=== PATIENT | female | born 1945 | race Caucasian/White ===

== ENCOUNTER 2018-01-27 11:23 | Outpatient (CLI) | payer MEDICARE ==
--- NOTE | 2018-01-27 12:46 | RAD ---
THREE VIEWS LEFT ANKLE: Indication: Left ankle pain. Comparison: None. FINDINGS: There is soft tissue swelling surrounding the left ankle. No acute fracture or subluxation is evident . Talar dome is normal. Visualized hindfoot is intact. IMPRESSION: No acute left ankle abnormality. POS: [facility]
== END 2018-01-27 11:24 | disposition home or self-care (01) ==
LOC: RAD-FRANK 11:23
PROVIDERS: ATTEND Nurse Practitioner Family
DX: S99.912A Unspecified injury of left ankle, initial encounter (principal)

== ENCOUNTER 2018-03-25 15:44 | Outpatient (CLI) | payer MEDICARE ==
--- NOTE | 2018-03-25 16:29 | RAD ---
3 VIEWS LEFT WRIST: Date: 03/25/18 COMPARISON: None. HISTORY: Pain. FINDINGS: There is mild radiocarpal joint space narrowing. No displaced fracture or dislocation is seen. IMPRESSION: No acute osseous abnormality seen. POS: [facility]
== END 2018-03-25 15:45 | disposition home or self-care (01) ==
LOC: RAD-FRANK 15:44
PROVIDERS: ATTEND Nurse Practitioner Family
DX: G56.02 Carpal tunnel syndrome, left upper limb (principal)

== ENCOUNTER 2018-06-20 07:44 | Outpatient (CLI) | payer MEDICARE ==
[2018-06-20] MEDS ORDERED: ISOVUE-370 76%-LOCM 1 ML ONE (13:30)
== END 2018-06-20 07:45 | disposition home or self-care (01) ==
LOC: BICCT 07:44
PROVIDERS: ATTEND Nurse Practitioner Family
DX: F17.200 Nicotine dependence, unspecified, uncomplicated (principal); D53.9 Nutritional anemia, unspecified; R30.0 Dysuria; R82.90 Unspecified abnormal findings in urine; D58.2 Other hemoglobinopathies; E11.40 Type 2 diabetes mellitus with diabetic neuropathy, unspecified; I10 Essential (primary) hypertension
CPT/HCPCS: 71260

== ENCOUNTER 2018-09-03 09:48 | Outpatient (CLI) | payer MEDICARE ==
--- NOTE | 2018-09-03 10:43 | RAD ---
LUMBAR SPINE THREE VIEW SERIES: INDICATIONS: Leg weakness. FINDINGS: There is moderate degenerative change, most notable at the mid to lower lumbar spine. No acute compr ession fracture. There is incidental note of atherosclerosis. Mild levocurvature of the lumbar spin e is present, epicentered at the L2-L3 level. IMPRESSION: No acute osseous abnormality of the lumbar spine, with multilevel degenerative change. POS: [facility]
== END 2018-09-03 09:49 | disposition home or self-care (01) ==
LOC: RAD-FRANK 09:48
PROVIDERS: ATTEND Nurse Practitioner Family
DX: R29.898 Other symptoms and signs involving the musculoskeletal system (principal); M47.816 Spondylosis without myelopathy or radiculopathy, lumbar region
CPT/HCPCS: 72100

== ENCOUNTER 2018-12-03 09:47 | Outpatient (CLI) | payer MEDICARE ==
--- NOTE | 2018-12-03 11:43 | BD ---
BONE DENSITOMETRY USING DEXA: HISTORY: Postmenopausal screening for osteoporosis. FINDINGS LUMBAR SPINE BMD (g/cm2) T-SCORE Z-SCORE L1: 0.940 -0.5 1.7 L2: 0.949 -0.7 1.7 L3: 1.097 0.1 2.7 L4: 1.412 3.2 5.8 TOTAL: 1.107 0.5 3.0 BMD (g/cm2) T-SCORE Z-SCORE NECK: 0.773 -0.7 1.4 TOTAL: 0.924 -0.1 1.7 IMPRESSION: 1. Normal bone mineral density. 2. No evidence for osteopenia/osteoporosis. POS: [facility]
== END 2018-12-03 09:48 | disposition home or self-care (01) ==
LOC: BICMAMMO 09:47
PROVIDERS: ATTEND Nurse Practitioner Family
DX: Z13.820 Encounter for screening for osteoporosis (principal)
CPT/HCPCS: 77080

== ENCOUNTER 2018-12-30 07:59 | Outpatient (CLI) | payer MEDICARE ==
--- NOTE | 2018-12-30 09:56 | ULT ---
ULTRASOUND NECK SOFT TISSUES: 12/30/2018 HISTORY: R59.0, supraclavicular lymphadenopathy. TECHNIQUE: focused ultrasound, limited to the palpable lump in the right supraclavicular region. FINDINGS: There is a well-circumscribed, [id number], nonshadowing, hypoechoic, solid mass, measuring 1.1 x 0.6 x 1.2 cm. It has blood flow demonstrated by Doppler. IMPRESSION: 1. The palpable lump corresponds to a superficial, small soft tissue solid mass, which is probably a mildly enlarged lymph node. 2. Recommend CT of the neck (preferably with intravenous contrast, unless contraindicated) to furthe r evaluate this lesion and to evaluate for other sites of lymphadenopathy. POS: [facility]
--- NOTE | 2018-12-30 10:57 | CT ---
CT CHEST WITH IV CONTRAST: 12/30/2018 PROVIDED CLINICAL HISTORY: Right medial supraclavicular palpable abnormality. FINDINGS: Vascular calcification, including coronary calcium, is demonstrated. The heart, pericardium, and gre at vessels demonstrate an otherwise unremarkable CT appearance. There is no evidence for mediastinal, hilar, or axillary lymph node enlargement. There is an approxi mately 1.3 cm enhancing soft tissue mass within the subcutaneous adipose layer, anterior to the media l right clavicle and sternocleidomastoid muscle. The CT appearance of this mass is nonspecific. No additional extrathoracic soft tissue nodules are seen. The lungs are free of significant opacity. Minimal emphysematous changes are seen. There is no pleural fluid or pneumothorax apparent. The osseous structures demonstrate no concerning lytic or blastic lesions. There is ectasia of the i nfrarenal abdominal aorta, measuring at least 2.5 cm. There is conspicuous atherosclerotic mural talita que seen involving the visualized portions of the abdominal aorta. The visualized portions of the up per abdomen appear otherwise unremarkable. IMPRESSION: 1. Nonspecific, enhancing 1.3 cm soft tissue mass within the subcutaneous adipose layer overlying th e medial right clavicle and sternocleidomastoid muscle. Tissue sampling should be considered. 2. Vascular calcification, including coronary calcium. 3. Ectasia of the infrarenal abdominal aorta, partially visualized. POS: [facility]
== END 2018-12-30 08:00 | disposition home or self-care (01) ==
LOC: SCSCT 07:59
PROVIDERS: ATTEND Nurse Practitioner Family
DX: R59.0 Localized enlarged lymph nodes (principal); R91.8 Other nonspecific abnormal finding of lung field; D58.2 Other hemoglobinopathies; R73.01 Impaired fasting glucose; I10 Essential (primary) hypertension; I70.90 Unspecified atherosclerosis; I25.10 Atherosclerotic heart disease of native coronary artery without angina pectoris; I77.811 Abdominal aortic ectasia; Z72.0 Tobacco use
CPT/HCPCS: 71260; 76536

== ENCOUNTER 2019-02-17 13:19 | Outpatient (CLI) | payer MEDICARE ==
--- NOTE | 2019-02-17 14:06 | ULT ---
Soft tissue ultrasound: Directed ultrasound of the anterior chest wall of this midsternum is performe d. INDICATIONS: Question palpable mass in the midsternal region. FINDINGS: No sonographic abnormality identified. No subcutaneous mass or cystic lesion. IMPRESSION: Unremarkable soft tissue ultrasound anterior mid chest wall at the area of palpable tavon rn.
== END 2019-02-17 13:20 | disposition home or self-care (01) ==
LOC: BICULT 13:19
PROVIDERS: ATTEND Nurse Practitioner Family
DX: R22.2 Localized swelling, mass and lump, trunk (principal)

== ENCOUNTER 2019-05-25 10:03 | Outpatient (CLI) | payer MEDICARE ==
--- NOTE | 2019-05-25 11:38 | ULT ---
US Gallbladder RUQ: 05/25/2019 12:00 AM CLINICAL HISTORY: Right upper quadrant abdominal pain. STUDY: Limited right upper quadrant ultrasound of abdomen. COMPARISON: None. FINDINGS: Liver: Size: Normal. Echogenicity: Increased slightly Contour: Smooth. Mass: None. Bile ducts: No intrahepatic or extrahepatic biliary dilatation. Common bile duct measures 5 mm. Gallbladder: Normal. Pancreas: Not well visualized. Right kidney: No pelvicalyceal dilatation. Right kidney measuring 9.4 cm in length. IMPRESSION: Increased echogenicity of the liver may be secondary to fatty infiltration.
== END 2019-05-25 10:04 | disposition home or self-care (01) ==
LOC: ULT 10:03
PROVIDERS: ATTEND Nurse Practitioner Family
DX: R10.11 Right upper quadrant pain (principal); K76.89 Other specified diseases of liver
CPT/HCPCS: 36415; 76705; 80053; 81001; 82150; 83690; 85025; 87086

== ENCOUNTER 2019-06-02 12:11 | Emergency (ER) | payer MEDICARE ==
[2019-06-02] MEDS ORDERED: Lidocaine 1% (PF) 30 ML VIAL ONE (12:47)
[2019-06-02] MEDS ORDERED: Lidocaine Viscous Sol 2% 15 ml UD Cup ONE (12:49)
[2019-06-02] MEDS ORDERED: Mag-Al 1200 mg/1200 mg/30 ML UDCUP ONE ×4 (12:49→12:51)
[2019-06-02 13:16] LABS: #Basophils 0.1 thou/uL (0.0-0.2); #Eosinphils 0.5 thou/uL (0.0-0.7); #Lymphocytes 2.5 thou/uL (1.20-3.40); #Monocytes 0.7 thou/uL (0.11-0.59); #Neutrophils 7.3 thou/uL (1.40-6.50); %Basophils 0.6 % (0.0-1.0); %Eosinophils 4.3 % (0.0-10.0); %Lymphocytes 22.7 % (21.0-51.0); %Monocytes 6.1 % (0.0-10.0); %Neutrophils 66.4 % (42.0-75.0); Hemoglobin 17.3 g/dL (12.0-16.0); Mean Corpuscular HGB CONC 35.4 g/dL (32.0-36.0); Mean Corpuscular Hemoglobin 32.6 pg (27.0-31.0); Mean Corpuscular Volume 92.2 fL (78.0-98.0); Mean Platelet Volume 8.4 fL (7.4-10.4); Platelet Count 159 thou/uL (130-400); RBC Distribution Width 12.8 % (11.5-14.5); Red Blood Cell (RBC) Count 5.31 mill/uL (4.20-5.40); White Blood Cell (WBC) Count 10.9 thou/uL (4.8-10.8)
[2019-06-02 13:48] LABS: ALT (SGPT) 11 U/L (8-55); AST (SGOT) 15 U/L (5-34); Albumin 4.2 g/dL (3.4-4.8); Alkaline Phosphatase 61 U/L (40-150); Anion Gap 11 mmol/L (10-20); BUN (Urea Nitrogen) 17 mg/dL (9.8-20.1); Bilirubin, Total 0.4 mg/dL (0.2-1.2); Calc. Creatinine Clearance 0 mL/min (70-130); Calcium 9.8 mg/dL (7.8-10.44); Carbon Dioxide 25 mmol/L (23-31); Chloride 105 mmol/L (98-107); Estimated GFR-MDRD 63; Globulin 2.6 g/dL (2.4-3.5); Glucose 109 mg/dL (83-110); Lipase 42 U/L (8-78); Potassium 3.6 mmol/L (3.5-5.1); Protein, Total 6.8 g/dL (6.0-8.3); Sodium 137 mmol/L (136-145)
[2019-06-02 14:24] LABS: Bacteria/HPF None Seen HPF (None Seen); Bilirubin Negative (Negative); Blood, Urine Negative (Negative); Clarity Clear (Clear); Glucose, Urine (Dipstick) Normal (Negative); Leukocyte 75 Leu/uL (Negative); Nitrite Negative (Negative); Protein, Urine (Dipstick) Negative (Neg-Trace); RBC/HPF None Seen HPF (0-3); Squamous Epithelial 0-3 HPF (0-3); Urobilinogen Normal mg/dL (Less than 2); WBC/HPF 0-3 HPF (0-3)
[2019-06-02] MEDS ORDERED: Ketorolac Tromethamine 30 MG/ML VIAL ONE (14:48)
[2019-06-02] MEDS ORDERED: ISOVUE-370 76%-LOCM 1 ML ONE (14:49)
--- NOTE | 2019-06-02 16:33 | CT ---
CT ABDOMEN AND PELVIS WITH IV CONTRAST: Date: 06/02/19 PROVIDED CLINICAL HISTORY: Right upper quadrant pain. FINDINGS: The visualized lung bases are free of significant opacity. The liver, spleen, pancreas, kidneys, and adrenal glands demonstrate no significant abnormality. There is no bowel dilatation, inflammatory fat stranding, free fluid, or free air apparent. There is conspicuous multifocal atherosclerotic vascular calcification, as well as areas of mural talita que involving the abdominal aorta. There is somewhat irregular appearing soft plaque involving the po sterior aspect of the proximal abdominal aorta at the inferior aspects of the diaphragmatic hiatus th at may reflect ulcerated plaque. There is no definite evidence for a significant mesenteric stenosis. There is mild narrowing at the origin of the superior mesenteric artery. The abdominal aorta is ecta tic distally measuring up to 2.7 cm. The osseous structures demonstrate no concerning lytic or blastic lesions. IMPRESSION: 1. No definite evidence for an acute process. 2. Atherosclerosis as described above. POS: [facility]
== END 2019-06-02 15:50 | disposition home or self-care (01) ==
LOC: ERS 12:11
DX: R10.11 Right upper quadrant pain (principal); E11.9 Type 2 diabetes mellitus without complications; I10 Essential (primary) hypertension; E78.5 Hyperlipidemia, unspecified; F17.210 Nicotine dependence, cigarettes, uncomplicated; Z79.51 Long term (current) use of inhaled steroids; Z79.899 Other long term (current) drug therapy
CPT/HCPCS: 74177; 80053; 81003; 81015; 83690; 85025; 96372; J1885; J2001; Q9966

== ENCOUNTER 2019-06-18 08:46 | Outpatient (CLI) | payer MEDICARE ==
--- NOTE | 2019-06-18 11:00 | ULT ---
ULTRASOUND ABDOMINAL AORTA: Date: 06/18/19 HISTORY: Ectasia. COMPARISON: None. TECHNIQUE: Sagittal and transverse imaging of the abdominal aorta is performed. Doppler imaging also performed. FINDINGS: There is scattered calcified plaque throughout the aorta. Proximal aorta measures 2.2 cm in the sagittal plane and 2.2 cm in the short axis. Mid aorta measures 2.2 cm in the sagittal plane and 2.1 cm in the short axis. Distal aorta measures 2.5 cm in the sagittal plane and 2.5 cm in the short axis. Neither iliac artery appears to be dilated. IMPRESSION: No evidence of aneurysm with regards to the visualized aorta. POS: [facility]
--- NOTE | 2019-06-18 11:34 | RAD ---
RADIOGRAPH CHEST 2 VIEWS: DATE: 06/18/19 HISTORY: 74-year-old female with chest pain. FINDINGS: There is no air space density, pulmonary edema, pleural effusion, pneumothorax, or cardiomegaly. IMPRESSION: No acute cardiopulmonary findings. jn [] POS: [facility]
== END 2019-06-18 08:47 | disposition home or self-care (01) ==
LOC: BICULT 08:46
PROVIDERS: ATTEND Nurse Practitioner Family
DX: I77.819 Aortic ectasia, unspecified site (principal)
CPT/HCPCS: 71046; 76775

== ENCOUNTER 2019-06-18 08:54 | Outpatient (CLI) | payer MEDICARE ==
--- NOTE | 2019-06-18 10:18 | MMO ---
Bilateral MAMMO Bilat Screen DDI+DREW. CLINICAL HISTORY: Patient is 74 years old and is seen for screening. The patient has the following family history of breast cancer: maternal aunt. The patient has no personal history of cancer. VIEWS: The views performed were: bilateral craniocaudal with tomosynthesis and bilateral mediolateral oblique with tomosynthesis. FILMS COMPARED: The present examination has been compared to prior imaging studies performed at [facility] on 04/13/2013, 04/14/2014, 04/15/2015 and 07/12/2016. MAMMOGRAM FINDINGS: There are scattered fibroglandular densities. There are no suspicious masses, suspicious calcifications, or new areas of architectural distortion. IMPRESSION: THERE IS NO MAMMOGRAPHIC EVIDENCE OF MALIGNANCY. A ROUTINE FOLLOW-UP MAMMOGRAM IN 1 YEAR IS RECOMMENDED. THE RESULTS OF THIS EXAM WERE SENT TO THE PATIENT. ACR BI-RADS Category 1 - Negative MAMMOGRAPHY NOTE: 1. A negative mammogram report should not delay a biopsy if a dominant of clinically suspicious mass is present. 2. Approximately 10% to 15% of breast cancers are not detected by mammography. 3. Adenosis and dense breasts may obscure an underlying neoplasm. Reported by: MINGO GREEN MD Electonically Signed: [id number]
== END 2019-06-18 08:55 | disposition home or self-care (01) ==
LOC: BICMAMMO 08:54
PROVIDERS: ATTEND Nurse Practitioner Family
DX: Z12.31 Encounter for screening mammogram for malignant neoplasm of breast (principal); Z80.3 Family history of malignant neoplasm of breast
CPT/HCPCS: 77063; 77067

== ENCOUNTER 2019-08-03 09:13 | Outpatient (CLI) | payer MEDICARE ==
[2019-08-03 10:13] LABS: #Eosinphils 0.3 thou/uL (0.0-0.7); #Lymphocytes 2.7 thou/uL (1.20-3.40); #Monocytes 0.6 thou/uL (0.11-0.59); #Neutrophils 7.4 thou/uL (1.40-6.50); %Basophils 0.3 % (0.0-1.0); %Eosinophils 2.9 % (0.0-10.0); %Lymphocytes 24.3 % (21.0-51.0); %Monocytes 5.7 % (0.0-10.0); %Neutrophils 66.9 % (42.0-75.0); Hemoglobin 16.8 g/dL (12.0-16.0); Mean Corpuscular HGB CONC 35.6 g/dL (32.0-36.0); Mean Corpuscular Hemoglobin 32.7 pg (27.0-31.0); Mean Platelet Volume 9.2 fL (7.4-10.4); Platelet Count 162 thou/uL (130-400); RBC Distribution Width 12.4 % (11.5-14.5); Red Blood Cell (RBC) Count 5.14 mill/uL (4.20-5.40); White Blood Cell (WBC) Count 11.1 thou/uL (4.8-10.8)
[2019-08-03 10:16] LABS: INR-International Normal Ratio 0.9; PTT 25.9 SEC (22.9-36.1); Prothrombin Time 12.2 SEC (12.0-14.7)
[2019-08-03 10:38] LABS: ALT (SGPT) 12 U/L (8-55); AST (SGOT) 17 U/L (5-34); Alkaline Phosphatase 61 U/L (40-110); Anion Gap 11 mmol/L (10-20); BUN (Urea Nitrogen) 16 mg/dL (9.8-20.1); Bilirubin, Total 0.3 mg/dL (0.2-1.2); Calc. Creatinine Clearance 0 mL/min (70-130); Calcium 9.4 mg/dL (7.8-10.44); Carbon Dioxide 27 mmol/L (23-31); Cardiac Risk 5.2 (Less than 4.5); Chloride 104 mmol/L (98-107); Cholesterol 191 mg/dl (< 200 Desired); Estimated GFR-MDRD 68; Globulin 2.6 g/dL (2.4-3.5); Glucose 125 mg/dL (83-110); HDL Cholesterol 37 mg/dL (>60 Neg Risk); LDL Cholesterol, Calculated 105 mg/dL; Potassium 3.4 mmol/L (3.5-5.1); Protein, Total 6.6 g/dL (6.0-8.3); Sodium 139 mmol/L (136-145); Triglycerides 246 mg/dL (Less than 150)
== END 2019-08-03 09:14 | disposition home or self-care (01) ==
LOC: LABBT 09:13
PROVIDERS: ATTEND Internal Medicine Cardiovascular Disease
DX: Z01.818 Encounter for other preprocedural examination (principal); I25.10 Atherosclerotic heart disease of native coronary artery without angina pectoris
CPT/HCPCS: 80053; 80061; 85025; 85610; 85730; 93005; 93010

== ENCOUNTER 2019-08-13 09:35 | Day surgery (SDC) | payer MEDICARE ==
[2019-08-03 09:26] VITALS: BMI 22.4
[2019-08-13] MEDS ORDERED: Lidocaine 1% (PF) 30 ML VIAL ONE (10:30)
[2019-08-13] MEDS ORDERED: Nitroglycerin 100MG/250ML BOT 250 ML ONE (10:30)
[2019-08-13] MEDS ORDERED: Heparin 10,000 UNITS/1 ML VIAL ONE (10:30)
[2019-08-13] MEDS ORDERED: Verapamil 5 MG/2 ML VIAL ONE (10:30)
[2019-08-13] MEDS ORDERED: Midazolam HCl 2 mg/2 ml Vial ONE (11:09)
[2019-08-13] MEDS ORDERED: Fentanyl 100 MCG/2 ML VIAL ONE (11:09)
== END 2019-08-13 15:35 | disposition home or self-care (01) ==
LOC: CCL 09:35
PROVIDERS: ATTEND Internal Medicine Cardiovascular Disease
PROC: 4A023N7 Measurement of Cardiac Sampling and Pressure, Left Heart, Percutaneous Approach (ICD-10-PCS; principal; 2019-08-13)
PROC: B2111ZZ Fluoroscopy of Multiple Coronary Arteries using Low Osmolar Contrast (ICD-10-PCS; 2019-08-13)
DX: I25.118 Atherosclerotic heart disease of native coronary artery with other forms of angina pectoris (principal); I35.1 Nonrheumatic aortic (valve) insufficiency; I10 Essential (primary) hypertension; E11.9 Type 2 diabetes mellitus without complications; E78.00 Pure hypercholesterolemia, unspecified; Z79.899 Other long term (current) drug therapy; Z88.1 Allergy status to other antibiotic agents; Z88.2 Allergy status to sulfonamides; Z88.8 Allergy status to other drugs, medicaments and biological substances
CPT/HCPCS: 85347; 93005; 93454; 93798; 99152; 99153; C1769; C1874; C1887; J1644; J2001; J2250; J3010

== ENCOUNTER 2019-09-09 09:55 | Outpatient (CLI) | payer MEDICARE ==
--- NOTE | 2019-09-09 10:12 | RAD ---
XR Wrist 3 Lt View STANDARD: 09/09/2019 12:00 AM CLINICAL INDICATION: Left wrist pain COMPARISON: March 25, 2018 left wrist radiograph. FINDINGS: Bones: No acute osseous abnormality. Joints: There is stable mild osteoarthrosis of the first C joint. Small amount of chondrocalcinosis i s present involving hyaline cartilage of the radial carpal joint as well as the TFC. This is stable to the prior exam. No periarticular erosive changes evident.. Soft Tissue: Diffuse soft tissue swelling of the left forearm and left wrist is nonspecific.. IMPRESSION: No acute fracture or subluxation demonstrated. Nonspecific diffuse soft tissue swelling the left fore arm and wrist. Stable mild first CMC osteoarthrosis. Stable chondrocalcinosis..
== END 2019-09-09 09:56 | disposition home or self-care (01) ==
LOC: RAD-FRANK 09:55
PROVIDERS: ATTEND Nurse Practitioner Family
DX: T14.8XXA Other injury of unspecified body region, initial encounter (principal); M79.602 Pain in left arm; D68.318 Other hemorrhagic disorder due to intrinsic circulating anticoagulants, antibodies, or inhibitors; M19.042 Primary osteoarthritis, left hand; M11.232 Other chondrocalcinosis, left wrist

== ENCOUNTER 2020-07-22 10:13 | Outpatient (CLI) | payer MEDICARE ==
--- NOTE | 2020-07-22 11:51 | ULT ---
COMPLETE ABDOMEN ULTRASOUND INDICATION: History of fatty liver TECHNIQUE: Grayscale, color Doppler and spectral Doppler were obtained of the abdomen. COMPARISON: Right upper quadrant ultrasound dated 05/25/[address] the abdomen and pelvis dated May FINDINGS: Liver: Normal. Main portal vein: Patent with appropriate hepatopedal flow Pancreas: Visualized aspects appeared normal. Gallbladder: Normal. No sonographic Dasilva's sign reported. Common bile duct:6 mm. Right kidney: The right kidney measured 7.8 x 4.3 x 4.4 cm. No focal renal lesion or hydronephrosis i s evident. Left kidney: The left kidney measured 10.7 x 4.5 x 4.5 cm. No focal renal lesion or hydronephrosis is demonstrated. Aorta and IVC: The aorta is tortuous with atherosclerotic calcification. No aneurysmal dilatation is evident. Visualized IVC is unremarkable appearing. Spleen: 11.1 cm in length. No focal splenic lesion is evident. Free fluid: None. IMPRESSION: 1. Normal sonographic evaluation of the abdomen
== END 2020-07-22 10:14 | disposition home or self-care (01) ==
LOC: BICULT 10:13
PROVIDERS: ATTEND Nurse Practitioner Family
DX: K76.0 Fatty (change of) liver, not elsewhere classified (principal); K21.0 Gastro-esophageal reflux disease with esophagitis; E87.1 Hypo-osmolality and hyponatremia; I10 Essential (primary) hypertension; D58.2 Other hemoglobinopathies; D68.318 Other hemorrhagic disorder due to intrinsic circulating anticoagulants, antibodies, or inhibitors; E11.40 Type 2 diabetes mellitus with diabetic neuropathy, unspecified; I35.1 Nonrheumatic aortic (valve) insufficiency
CPT/HCPCS: 93975

== ENCOUNTER 2020-11-15 19:00 | Emergency (ER) | payer MEDICARE | END 2020-11-15 20:21 | disposition home or self-care (01) | LOC: ERS 19:00 | DX: M79.604 Pain in right leg (principal); M79.605 Pain in left leg; E11.9 Type 2 diabetes mellitus without complications; E78.5 Hyperlipidemia, unspecified; E78.00 Pure hypercholesterolemia, unspecified; I10 Essential (primary) hypertension; F17.210 Nicotine dependence, cigarettes, uncomplicated | CPT/HCPCS: 99283 ==

== ENCOUNTER 2021-03-21 23:50 | Inpatient (IN) | payer MEDICARE ==
[2021-03-22 01:29] LABS: #Eosinphils 0.2 thou/uL (0.0-0.7); #Lymphocytes 1.2 thou/uL (1.20-3.40); #Monocytes 1.3 thou/uL (0.11-0.59); #Neutrophils 16.5 thou/uL (1.40-6.50); %Basophils 0.1 % (0.0-1.0); %Eosinophils 0.8 % (0.0-10.0); %Lymphocytes 6.4 % (21.0-51.0); %Monocytes 6.8 % (0.0-10.0); %Neutrophils 85.8 % (42.0-75.0); Mean Corpuscular HGB CONC 34.3 g/dL (32.0-36.0); Mean Corpuscular Hemoglobin 31.1 pg (27.0-31.0); Mean Corpuscular Volume 90.8 fL (78.0-98.0); Mean Platelet Volume 8.4 fL (7.4-10.4); Platelet Count 146 thou/uL (130-400); RBC Distribution Width 12.6 % (11.5-14.5); Red Blood Cell (RBC) Count 4.81 mill/uL (4.20-5.40); White Blood Cell (WBC) Count 19.3 thou/uL (4.8-10.8)
[2021-03-22 02:01] LABS: ALT (SGPT) 27 U/L (8-55); AST (SGOT) 22 U/L (5-34); Alkaline Phosphatase 60 U/L (40-110); Anion Gap 15 mmol/L (10-20); BUN (Urea Nitrogen) 21 mg/dL (9.8-20.1); Bilirubin, Total 0.7 mg/dL (0.2-1.2); CK (CPK) 61 U/L (29-168); Calc. Creatinine Clearance 0 mL/min (70-130); Calcium 9.3 mg/dL (7.8-10.44); Carbon Dioxide 25 mmol/L (23-31); Chloride 94 mmol/L (98-107); Globulin 2.5 g/dL (2.4-3.5); Glucose 164 mg/dL (83-110); Potassium 3.6 mmol/L (3.5-5.1); Protein, Total 6.5 g/dL (5.8-8.1); Sodium 130 mmol/L (136-145)
[2021-03-22 02:46] LABS: Bilirubin Negative (Negative); Blood, Urine 2+ (Negative); Clarity Turbid (Clear); Glucose, Urine (Dipstick) Normal (Negative); Ketone, Urine Negative (Negative); Leukocyte 500 Leu/uL (Negative); Nitrite Negative (Negative); Protein, Urine (Dipstick) 100 mg/dL (Neg-Trace); Specific Gravity, Urine 1.015 (1.002-1.036); Squamous Epithelial 0-3 HPF (0-3); Urobilinogen Normal mg/dL (Less than 2); WBC/HPF Greater than 50 HPF (0-3)
[2021-03-22 02:47] LABS: Bacteria/HPF 1+ HPF (None Seen)
[2021-03-22] MEDS ORDERED: cefTRIAXone\\ROCEPHIN 2 GM VIAL ONE (03:19)
[2021-03-22] MEDS ORDERED: Acetaminophen 325 MG TAB ONE (05:12)
[2021-03-22] MEDS ORDERED: HumaLOG 300 UNITS/3 ML VIAL SC PRN (07:44)
[2021-03-22] MEDS ORDERED: Acetaminophen 325 MG TAB PO PRN (07:44)
[2021-03-22] MEDS ORDERED: Zolpidem Tartrate 5 MG TAB PO PRN (07:44)
[2021-03-22] MEDS ORDERED: Ondansetron ODT 4 MG TAB PO PRN (07:44)
[2021-03-22] MEDS ORDERED: Dextrose 50% Abboject 50 ML SYRINGE SLOW IVP PRN (07:44)
[2021-03-22] MEDS ORDERED: Dextrose 5% in Water 1,000 ML IV PRN (07:44)
[2021-03-22] MEDS ORDERED: cefTRIAXone Sodium 1 MG in Syringe 0 ML IVPB SCH (07:45)
[2021-03-22 07:50] VITALS: BMI 20.6
[2021-03-22] MEDS: Sodium Chloride 0.9% 1,000 ML IV SCH ×2 (09:36→18:40)
[2021-03-22] MEDS: Enoxaparin Sodium 40 MG/0.4 ML SYRINGE SC SCH (09:36)
[2021-03-22 15:42] LABS: SARS-CoV-2 PCR by NAA Not Detected (NotDetected)
[2021-03-22] MEDS: Pregabalin 75 MG CAP PO SCH (21:34)
[2021-03-22] MEDS: Rosuvastatin 20 MG TAB PO SCH (21:34)
[2021-03-23] MEDS ORDERED: cefTRIAXone\\ROCEPHIN 1 GM in Sodium Chloride 0.9% 100 ML IVPB SCH (03:00)
[2021-03-23] MEDS ORDERED: cefTRIAXone\\ROCEPHIN 2 GM in Sodium Chloride 0.9% 100 ML IVPB SCH (03:00)
[2021-03-23] MEDS: cefTRIAXone\\ROCEPHIN 1 GM in Sodium Chloride 0.9% 100 ML IVPB SCH (05:54)
[2021-03-23] MEDS: Sodium Chloride 0.9% 1,000 ML IV SCH ×2 (05:54→14:55)
[2021-03-23 06:02] LABS: Anion Gap 10 mmol/L (10-20); BUN (Urea Nitrogen) 17 mg/dL (9.8-20.1); Calc. Creatinine Clearance 55 mL/min (70-130); Calcium 8.3 mg/dL (7.8-10.44); Carbon Dioxide 24 mmol/L (23-31); Chloride 106 mmol/L (98-107); Glucose 116 mg/dL (83-110); Potassium 3.6 mmol/L (3.5-5.1); Sodium 136 mmol/L (136-145)
[2021-03-23 06:10] LABS: #Eosinphils 0.2 thou/uL (0.0-0.7); #Lymphocytes 1.3 thou/uL (1.20-3.40); #Monocytes 0.8 thou/uL (0.11-0.59); #Neutrophils 6.6 thou/uL (1.40-6.50); %Basophils 0.2 % (0.0-1.0); %Eosinophils 2.5 % (0.0-10.0); %Monocytes 8.4 % (0.0-10.0); %Neutrophils 73.9 % (42.0-75.0); Mean Corpuscular HGB CONC 33.5 g/dL (32.0-36.0); Mean Corpuscular Volume 92.4 fL (78.0-98.0); Mean Platelet Volume 8.6 fL (7.4-10.4); Platelet Count 115 thou/uL (130-400); Platelet Morphology Comment Appears Decreased; RBC Distribution Width 12.6 % (11.5-14.5); Red Blood Cell (RBC) Count 4.19 mill/uL (4.20-5.40)
[2021-03-23] MEDS: Enoxaparin Sodium 40 MG/0.4 ML SYRINGE SC SCH ×2 (08:48→08:49)
[2021-03-23] MEDS: Aspirin 81 mg Enteric Coated Tablet PO SCH (08:48)
[2021-03-23 09:51] LABS: Hemoglobin A1c 6.2 % (4.0-6.0)
[2021-03-23] MEDS: Pregabalin 75 MG CAP PO SCH ×2 (12:03→20:17)
[2021-03-23] MEDS: Rosuvastatin 20 MG TAB PO SCH (20:16)
[2021-03-24] MEDS: Sodium Chloride 0.9% 1,000 ML IV SCH ×2 (01:05→08:34)
[2021-03-24] MEDS: cefTRIAXone\\ROCEPHIN 1 GM in Sodium Chloride 0.9% 100 ML IVPB SCH (05:08)
[2021-03-24] MEDS: Aspirin 81 mg Enteric Coated Tablet PO SCH (08:33)
[2021-03-24] MEDS: Enoxaparin Sodium 40 MG/0.4 ML SYRINGE SC SCH (08:33)
[2021-03-24] MEDS: Pregabalin 75 MG CAP PO SCH (12:00)
[2021-03-24 16:09] VITALS: BP 162/66; TEMP 98
== END 2021-03-24 16:00 | disposition home or self-care (01) | DRG 872 ==
LOC: ERS 23:50 → ERHOLD 03-22 03:58 → SURG A 03-22 07:44 → OBSVTOIN 03-22 07:44
PROVIDERS: ADMIT Student in an Organized Health Care Education/Training Program; ATTEND Internal Medicine
DX: A41.51 Sepsis due to Escherichia coli [E. coli] (principal); N39.0 Urinary tract infection, site not specified; N17.9 Acute kidney failure, unspecified; Z20.822 Contact with and (suspected) exposure to COVID-19; E11.9 Type 2 diabetes mellitus without complications; E78.5 Hyperlipidemia, unspecified; E78.00 Pure hypercholesterolemia, unspecified; I10 Essential (primary) hypertension; F17.210 Nicotine dependence, cigarettes, uncomplicated; I25.10 Atherosclerotic heart disease of native coronary artery without angina pectoris; Z88.1 Allergy status to other antibiotic agents; Z88.2 Allergy status to sulfonamides; Z79.899 Other long term (current) drug therapy; Z79.84 Long term (current) use of oral hypoglycemic drugs; Z79.82 Long term (current) use of aspirin; Z90.710 Acquired absence of both cervix and uterus; Z95.5 Presence of coronary angioplasty implant and graft; Z88.8 Allergy status to other drugs, medicaments and biological substances
CPT/HCPCS: 36415; 36416; 70450; 71046; 80048; 80053; 81003; 81015; 82550; 83036; 83605; 84443; 84484; 85025; 87040; 87086; 87186; 93005; 96365; G0378; J0696; J1650; J1815; J3490; U0003; U0005

== ENCOUNTER 2021-07-07 05:48 | Day surgery (SDC) | payer MEDICARE ==
[2021-07-06 10:40] VITALS: BMI 20.6
[2021-07-07] MEDS ORDERED: Lidocaine 1% w/Epinephrine 1:100K 30 ML VIAL ONE (06:47)
[2021-07-07] MEDS ORDERED: Bupivacaine PF 0.5% 30 ML VIAL ONE (06:47)
[2021-07-07] MEDS ORDERED: Fentanyl 100 MCG/2 ML VIAL ONE (07:41)
[2021-07-07] MEDS ORDERED: Albuterol Sulfate HFA (OR ONLY) ONE (07:42)
[2021-07-07] MEDS ORDERED: PHENYLEPHRINE-NS 100 MCG/ML 10 ML SYRINGE ONE (07:57)
[2021-07-07] MEDS ORDERED: PROPOFOL 200 MG/20 ML VIAL ONE (07:57)
[2021-07-07] MEDS ORDERED: Ondansetron PF 4 MG/2 ML Vial ONE (07:57)
[2021-07-07] MEDS ORDERED: ePHEDrine 50 MG/ML VIAL ONE (07:57)
[2021-07-07] MEDS ORDERED: Lidocaine 1% PF 5 ML VIAL ONE (07:57)
== END 2021-07-07 10:35 | disposition home or self-care (01) ==
LOC: SDC 05:48
PROVIDERS: ATTEND Surgery
PROC: 07B60ZX Excision of Left Axillary Lymphatic, Open Approach, Diagnostic (ICD-10-PCS; principal; 2021-07-07)
DX: C83.31 Diffuse large B-cell lymphoma, lymph nodes of head, face, and neck (principal); E78.5 Hyperlipidemia, unspecified; E11.40 Type 2 diabetes mellitus with diabetic neuropathy, unspecified; I10 Essential (primary) hypertension; I25.2 Old myocardial infarction; I35.1 Nonrheumatic aortic (valve) insufficiency; F17.210 Nicotine dependence, cigarettes, uncomplicated; Z79.82 Long term (current) use of aspirin; Z79.84 Long term (current) use of oral hypoglycemic drugs; Z79.899 Other long term (current) drug therapy; Z88.1 Allergy status to other antibiotic agents; Z88.2 Allergy status to sulfonamides; Z95.5 Presence of coronary angioplasty implant and graft
CPT/HCPCS: 88184; 88307; 88341; 88342; 88360; J0690; J2405; J2704; J3010; J3490; J7620; S0020

== ENCOUNTER 2021-07-08 14:25 | Emergency (ER) | payer MEDICARE | END 2021-07-08 15:15 | disposition home or self-care (01) | LOC: ERS 14:25 | DX: S41.111A Laceration without foreign body of right upper arm, initial encounter (principal); Z48.817 Encounter for surgical aftercare following surgery on the skin and subcutaneous tissue; E11.9 Type 2 diabetes mellitus without complications; E78.5 Hyperlipidemia, unspecified; I10 Essential (primary) hypertension; F17.210 Nicotine dependence, cigarettes, uncomplicated; Z79.899 Other long term (current) drug therapy; W19.XXXA Unspecified fall, initial encounter | CPT/HCPCS: 99283 ==

== ENCOUNTER 2021-07-21 13:02 | Outpatient (CLI) | payer MEDICARE | END 2021-07-21 13:03 | disposition home or self-care (01) | LOC: ULT 13:02 | PROVIDERS: ATTEND Internal Medicine Hematology & Oncology | DX: Z51.11 Encounter for antineoplastic chemotherapy (principal); C83.31 Diffuse large B-cell lymphoma, lymph nodes of head, face, and neck; Z79.899 Other long term (current) drug therapy; I08.1 Rheumatic disorders of both mitral and tricuspid valves | CPT/HCPCS: 93306 ==

== ENCOUNTER 2021-07-25 10:31 | Outpatient (CLI) | payer MEDICARE | END 2021-07-25 10:32 | disposition home or self-care (01) | LOC: PET 10:31 | PROVIDERS: ATTEND Internal Medicine Hematology & Oncology | DX: C83.31 Diffuse large B-cell lymphoma, lymph nodes of head, face, and neck (principal) | CPT/HCPCS: 78815; A9552 ==

== ENCOUNTER 2021-08-03 08:17 | Outpatient (CLI) | payer MEDICARE ==
[2021-08-03 10:06] LABS: #Basophils 0.1 10x3/uL (0.0-0.2); #Eosinphils 0.7 10x3/uL (0.0-0.5); #Monocytes 0.6 10x3/uL (0.0-1.1); %Eosinophils 8.2 % (0.0-6.0); %Lymphocytes 22.5 % (18.0-47.0); %Monocytes 6.8 % (0.0-10.0); %Neutrophils 61.1 % (40.0-75.0); Hemoglobin 14.6 g/dL (12.0-15.5); Mean Corpuscular HGB CONC 34.4 g/dL (32.0-36.0); Mean Corpuscular Hemoglobin 30.5 pg (27.0-33.0); Mean Corpuscular Volume 88.7 fl (81.6-98.3); Mean Platelet Volume 10.9 fl (7.4-10.4); Platelet Count 190 10x3/uL (150-450); Red Blood Cell (RBC) Count 4.78 10x6/uL (3.90-5.03); White Blood Cell (WBC) Count 8.2 10x3/uL (3.5-10.5)
[2021-08-03 10:19] LABS: ALT (SGPT) 19 U/L (8-55); AST (SGOT) 21 U/L (5-34); Albumin 4.1 g/dL (3.4-4.8); Alkaline Phosphatase 60 U/L (40-110); Anion Gap 13 mmol/L (10-20); BUN (Urea Nitrogen) 18 mg/dL (9.8-20.1); Bilirubin, Total 0.4 mg/dL (0.2-1.2); Calc. Creatinine Clearance 0 mL/min (70-130); Calcium 9.8 mg/dL (7.8-10.44); Carbon Dioxide 27 mmol/L (23-31); Chloride 100 mmol/L (98-107); Globulin 2.3 g/dL (2.4-3.5); Glucose 152 mg/dL (83-110); Potassium 3.8 mmol/L (3.5-5.1); Protein, Total 6.4 g/dL (5.8-8.1); Sodium 136 mmol/L (136-145)
[2021-08-03 20:16] LABS: SARS-CoV-2 PCR by NAA Not Detected (NotDetected)
== END 2021-08-03 08:18 | disposition home or self-care (01) ==
LOC: LABBT 08:17
PROVIDERS: ATTEND Surgery
DX: Z01.818 Encounter for other preprocedural examination (principal); C85.90 Non-Hodgkin lymphoma, unspecified, unspecified site; Z20.822 Contact with and (suspected) exposure to COVID-19
CPT/HCPCS: 80053; 85025; 93005; U0003; U0005; 93010

== ENCOUNTER 2021-08-07 09:35 | Day surgery (SDC) | payer MEDICARE ==
[2021-08-04 10:50] VITALS: BMI 20.6
[2021-08-07] MEDS ORDERED: PROPOFOL 20 ML ONE (11:05)
[2021-08-07] MEDS ORDERED: Bupivacaine 0.25% HCL 30 ML VIAL ONE (11:15)
[2021-08-07] MEDS ORDERED: Lidocaine 1% w/Epinephrine 1:100K 20 ML VIAL ONE (11:15)
[2021-08-07] MEDS ORDERED: Metoclopramide HCl 10 MG/2 ML VIAL ONE (11:32)
[2021-08-07] MEDS ORDERED: PROPOFOL 200 MG/20 ML VIAL ONE (11:32)
[2021-08-07] MEDS ORDERED: Ondansetron PF 4 MG/2 ML Vial ONE (11:32)
[2021-08-07] MEDS ORDERED: Lidocaine 1% PF 5 ML VIAL ONE (11:32)
== END 2021-08-07 13:41 | disposition home or self-care (01) ==
LOC: SDC 09:35
PROVIDERS: ATTEND Surgery
PROC: 0JH60WZ Insertion of Totally Implantable Vascular Access Device into Chest Subcutaneous Tissue and Fascia, Open Approach (ICD-10-PCS; principal; 2021-08-07)
PROC: 02HV33Z Insertion of Infusion Device into Superior Vena Cava, Percutaneous Approach (ICD-10-PCS; 2021-08-07)
DX: C85.90 Non-Hodgkin lymphoma, unspecified, unspecified site (principal); E78.5 Hyperlipidemia, unspecified; E11.40 Type 2 diabetes mellitus with diabetic neuropathy, unspecified; I10 Essential (primary) hypertension; F17.210 Nicotine dependence, cigarettes, uncomplicated; Z79.82 Long term (current) use of aspirin; Z79.84 Long term (current) use of oral hypoglycemic drugs; Z79.899 Other long term (current) drug therapy; Z88.1 Allergy status to other antibiotic agents; Z88.2 Allergy status to sulfonamides; Z88.8 Allergy status to other drugs, medicaments and biological substances; Z95.5 Presence of coronary angioplasty implant and graft
CPT/HCPCS: 71045; C1788; J1642; J2405; J2704; J2765; S0020

== ENCOUNTER 2021-08-21 07:27 | Outpatient (CLI) | payer MEDICARE ==
[2021-08-21 11:14] LABS: Hemoglobin 14.6 g/dL (12.0-15.5); Mean Corpuscular HGB CONC 34.4 g/dL (32.0-36.0); Mean Corpuscular Hemoglobin 30.6 pg (27.0-33.0); Mean Corpuscular Volume 89.1 fl (81.6-98.3); Mean Platelet Volume 10.9 fl (7.4-10.4); Platelet Count 193 10x3/uL (150-450); RBC Distribution Width 13.1 % (11.5-14.5); Red Blood Cell (RBC) Count 4.77 10x6/uL (3.90-5.03)
[2021-08-21 11:26] LABS: Anion Gap 15 mmol/L (10-20); BUN (Urea Nitrogen) 13 mg/dL (9.8-20.1); Calc. Creatinine Clearance 0 mL/min (70-130); Calcium 9.1 mg/dL (7.8-10.44); Carbon Dioxide 26 mmol/L (23-31); Chloride 96 mmol/L (98-107); Glucose 141 mg/dL (83-110); Potassium 3.7 mmol/L (3.5-5.1); Sodium 133 mmol/L (136-145)
[2021-08-21 18:54] LABS: SARS-CoV-2 PCR by NAA Not Detected (NotDetected)
== END 2021-08-21 07:28 | disposition home or self-care (01) ==
LOC: LABBT 07:27
PROVIDERS: ATTEND Student in an Organized Health Care Education/Training Program
DX: Z01.812 Encounter for preprocedural laboratory examination (principal); C85.90 Non-Hodgkin lymphoma, unspecified, unspecified site; R22.9 Localized swelling, mass and lump, unspecified; F17.200 Nicotine dependence, unspecified, uncomplicated; Z90.89 Acquired absence of other organs; Z20.822 Contact with and (suspected) exposure to COVID-19
CPT/HCPCS: 80048; 85027; U0003; U0005

== ENCOUNTER 2021-08-22 12:27 | Day surgery (SDC) | payer MEDICARE ==
[2021-08-21 11:27] VITALS: BMI 19.8
[2021-08-22] MEDS ORDERED: Sodium Chloride 0.9% 10 ML ONE ×2 (13:18→18:07)
[2021-08-22] MEDS ORDERED: EPINEPHrine 1 MG/ML AMP ONE (14:52)
[2021-08-22] MEDS ORDERED: Fentanyl 100 MCG/2 ML VIAL ONE (15:10)
[2021-08-22] MEDS ORDERED: Acetaminophen 500 MG TAB ONE (15:10)
[2021-08-22] MEDS ORDERED: Succinylcholine 200 MG/10 ml SYRINGE FS ONE (15:17)
[2021-08-22] MEDS ORDERED: Lidocaine 1% PF 5 ML VIAL ONE (15:17)
[2021-08-22] MEDS ORDERED: Ondansetron PF 4 MG/2 ML Vial ONE (15:17)
[2021-08-22] MEDS ORDERED: Rocuronium Bromide 10 MG/ML (10ML VIAL) ONE (15:17)
[2021-08-22] MEDS ORDERED: PROPOFOL 200 MG/20 ML VIAL ONE (15:17)
[2021-08-22] MEDS ORDERED: Dexamethasone 20 MG/5 ML VIAL ONE (15:17)
== END 2021-08-22 18:33 | disposition home or self-care (01) ==
LOC: SDC 12:27
PROVIDERS: ATTEND Student in an Organized Health Care Education/Training Program
PROC: 0CBM8ZZ Excision of Pharynx, Via Natural or Artificial Opening Endoscopic (ICD-10-PCS; principal; 2021-08-22)
PROC: 0BJ08ZZ Inspection of Tracheobronchial Tree, Via Natural or Artificial Opening Endoscopic (ICD-10-PCS; 2021-08-22)
DX: K14.8 Other diseases of tongue (principal); C83.39 Diffuse large B-cell lymphoma, extranodal and solid organ sites; F17.210 Nicotine dependence, cigarettes, uncomplicated; E11.40 Type 2 diabetes mellitus with diabetic neuropathy, unspecified; I25.2 Old myocardial infarction; I10 Essential (primary) hypertension; E78.5 Hyperlipidemia, unspecified; R63.6 Underweight; Z68.1 Body mass index [BMI] 19.9 or less, adult; Z79.82 Long term (current) use of aspirin; Z79.84 Long term (current) use of oral hypoglycemic drugs; Z79.899 Other long term (current) drug therapy; Z88.1 Allergy status to other antibiotic agents; Z88.2 Allergy status to sulfonamides; Z88.8 Allergy status to other drugs, medicaments and biological substances; Z95.5 Presence of coronary angioplasty implant and graft
CPT/HCPCS: 88184; 88305; 88341; 88342; J0171; J1100; J1642; J2405; J2704; J3010

== ENCOUNTER 2021-09-04 08:44 | Day surgery (SDC) | payer MEDICARE ==
[~2021-09-04 08:44] MED LIST: ADMIXTURE FEE CHEMO IVP SCH; Acetaminophen 500 MG TAB PO PRN; CYCLOPHOSPHAMIDE IVPB SCH; DOXORUBICIN IVPB SCH; Dexamethasone 20 MG in Sodium Chloride 0.9% 50 ML IVPB SCH; Dexamethasone Sod Phosphate 20 MG in Sodium Chloride 0.9% 50 ML IVPB SCH; PALONOSETRON HCL 0.05 MG/ML 5 ML VIAL IVP SCH; PEGFILGRASTIM-JMDB 6 MG/0.6 ML SYRINGE SQ SCH; Palonosetron HCl 0.25 MG in Sodium Chloride 0.9% 50 ML IVPB SCH; RITUXIMAB PVVR IVPB SCH; SODIUM CHLORIDE 0.9% IVPB SCH; VINCRISTINE SULFATE IVP SCH; diphenhydrAMINE 50 MG in Sodium Chloride 0.9% 50 ML IVPB SCH; predniSONE 50 MG TAB PO SCH; vinCRIStine Sulfate 2 MG in Sodium Chloride 0.9% 50 ML IVP SCH
[2021-09-04] MEDS ORDERED: Sodium Chloride 0.9% 20 ML ONE (09:19)
[2021-09-04] MEDS ORDERED: Pegfilgrastim Onpro 6 MG/0.6 ML SQ SCH (09:30)
[2021-09-04 09:40] VITALS: TEMP 98.9
[2021-09-04 14:44] VITALS: BP 110/58
== END 2021-09-04 16:26 | disposition home or self-care (01) ==
LOC: ONC/OP 08:44
PROVIDERS: ATTEND Internal Medicine Hematology & Oncology
DX: Z51.11 Encounter for antineoplastic chemotherapy (principal); C83.31 Diffuse large B-cell lymphoma, lymph nodes of head, face, and neck; D75.1 Secondary polycythemia; Z88.1 Allergy status to other antibiotic agents; Z88.2 Allergy status to sulfonamides; Z88.8 Allergy status to other drugs, medicaments and biological substances
CPT/HCPCS: 36415; 80053; 82248; 83615; 84100; 84550; 96367; 96372; 96375; 96377; 96411; 96413; 96415; 96417; J1100; J1200; J1453; J1642; J2469; J2505; J3490; J7030; J7050; J9000; J9070; J9370; Q5108; Q5119

== ENCOUNTER 2021-09-11 13:59 | Inpatient (IN) | payer MEDICARE ==
[2021-09-11 15:02] LABS: Hemoglobin 13.1 g/dL (12.0-16.0); Mean Corpuscular HGB CONC 34.5 g/dL (32.0-36.0); Mean Corpuscular Hemoglobin 31.8 pg (27.0-31.0); Mean Corpuscular Volume 92.2 fL (78.0-98.0); Mean Platelet Volume 9.5 fL (7.4-10.4); Platelet Count 25 thou/uL (130-400); RBC Distribution Width 12.5 % (11.5-14.5); Red Blood Cell (RBC) Count 4.12 mill/uL (4.20-5.40); White Blood Cell (WBC) Count 0.4 thou/uL (4.8-10.8)
[2021-09-11 15:18] LABS: ALT (SGPT) 11 U/L (8-55); AST (SGOT) 9 U/L (5-34); Albumin 3.6 g/dL (3.4-4.8); Alkaline Phosphatase 57 U/L (40-110); Anion Gap 12 mmol/L (10-20); BUN (Urea Nitrogen) 26 mg/dL (9.8-20.1); Bilirubin, Total 1.5 mg/dL (0.2-1.2); Calc. Creatinine Clearance 0 mL/min (70-130); Carbon Dioxide 29 mmol/L (23-31); Chloride 97 mmol/L (98-107); Globulin 2.6 g/dL (2.4-3.5); Glucose 156 mg/dL (83-110); Platelet Morphology Comment Appears Decreased; Potassium 3.9 mmol/L (3.5-5.1); Protein, Total 6.2 g/dL (5.8-8.1); RBC Morphology Normal; Sodium 134 mmol/L (136-145)
[2021-09-11] MEDS ORDERED: Ondansetron PF 4 MG/2 ML Vial ONE (16:41)
[2021-09-11] MEDS ORDERED: Acetaminophen 325 MG TAB ONE (17:33)
[2021-09-11 22:50] LABS: Bilirubin Negative (Negative); Blood, Urine Negative (Negative); Clarity Turbid (Clear); Glucose, Urine (Dipstick) Normal (Negative); Ketone, Urine Negative (Negative); Leukocyte Negative Leu/uL (Negative); Nitrite Negative (Negative); Protein, Urine (Dipstick) 20 mg/dL (Neg-Trace); Specific Gravity, Urine 1.013 (1.002-1.036); pH, Urine 6.5 (5.0-9.0)
[2021-09-11] MEDS ORDERED: Sodium Chloride 0.9% 1,000 ML IV SCH (23:45)
[2021-09-11] MEDS ORDERED: Ondansetron ODT 4 MG TAB SL PRN (23:45)
[2021-09-11] MEDS ORDERED: Acetaminophen 325 MG TAB PO PRN (23:45)
[2021-09-11] MEDS ORDERED: Ondansetron PF 4 MG/2 ML Vial IVP PRN (23:45)
[2021-09-12 00:24] VITALS: BMI 20.7
[2021-09-12] MEDS ORDERED: Ondansetron PF 4 MG/2 ML Vial IVP PRN (03:16)
[2021-09-12] MEDS ORDERED: HumaLOG 300 UNITS/3 ML VIAL SC PRN ×2 (03:19)
[2021-09-12] MEDS ORDERED: Dextrose 50% Abboject 50 ML SYRINGE SLOW IVP PRN (03:19)
[2021-09-12] MEDS ORDERED: Dextrose 5% in Water 1,000 ML IV PRN (03:19)
[2021-09-12] MEDS ORDERED: hydrALAZINE 20 MG/ML VIAL SLOW IVP PRN (03:22)
[2021-09-12] MEDS ORDERED: Cefepime 1 GM in Sodium Chloride 0.9% 100 ML IVPB SCH (03:30)
[2021-09-12 04:29] LABS: Anion Gap 13 mmol/L (10-20); BUN (Urea Nitrogen) 21 mg/dL (9.8-20.1); Calc. Creatinine Clearance 55 mL/min (70-130); Calcium 8.5 mg/dL (7.8-10.44); Carbon Dioxide 25 mmol/L (23-31); Chloride 100 mmol/L (98-107); Glucose 127 mg/dL (83-110); Potassium 3.5 mmol/L (3.5-5.1); Sodium 134 mmol/L (136-145)
[2021-09-12 04:30] LABS: Hemoglobin 12.2 g/dL (12.0-16.0); Mean Corpuscular HGB CONC 34.1 g/dL (32.0-36.0); Mean Corpuscular Hemoglobin 31.4 pg (27.0-31.0); Mean Corpuscular Volume 92.3 fL (78.0-98.0); Mean Platelet Volume 11.1 fL (7.4-10.4); Platelet Count 20 thou/uL (130-400); RBC Distribution Width 12.2 % (11.5-14.5); Red Blood Cell (RBC) Count 3.89 mill/uL (4.20-5.40); White Blood Cell (WBC) Count 0.3 thou/uL (4.8-10.8)
[2021-09-12] MEDS: Acetaminophen 325 MG TAB PO PRN ×2 (05:13→10:53)
[2021-09-12] MEDS ORDERED: CEFEPIME IVPB PRN (08:57)
[2021-09-12] MEDS: Pregabalin 75 MG CAP PO SCH ×2 (10:54→20:36)
[2021-09-12] MEDS: Vancomycin 1 GM in Premix Bag 1 BAG IVPB SCH (10:54)
[2021-09-12] MEDS: Nystatin 500,000 UNITS/5 ML UDCUP SSW SCH ×3 (13:21→20:35)
[2021-09-12] MEDS: Meropenem 2 GM in Sodium Chloride 0.9% 100 ML IVPB SCH ×2 (13:21→22:40)
[2021-09-12] MEDS ORDERED: Meropenem 2 GM in Admixture Fee 1 EACH IVPB SCH (14:00)
[2021-09-12 14:19] LABS: SARS-CoV-2 PCR by NAA Not Detected (NotDetected)
[2021-09-12] MEDS: traMADol HCl 50 MG TAB PO PRN (15:34)
[2021-09-12] MEDS ORDERED: Fluconazole In NaCl,Iso-Osm 200 MG in Premix Bag 1 BAG IVPB SCH (15:45)
[2021-09-12] MEDS ORDERED: Cefepime 2 GM in Sodium Chloride 0.9% 100 ML IVPB SCH (17:00)
[2021-09-12] MEDS: Rosuvastatin 5 MG TAB PO SCH (20:35)
[2021-09-12] MEDS: Losartan 25 MG TAB PO SCH (20:38)
[2021-09-12] MEDS ORDERED: Rosuvastatin 20 MG TAB PO SCH (21:00)
[2021-09-12] MEDS ORDERED: Pregabalin 75 MG CAP PO SCH (21:00)
[2021-09-12] MEDS ORDERED: Vancomycin 1.25 GM in Premix Bag 1 BAG IVPB SCH (21:00)
[2021-09-12] MEDS: Aspirin 81 mg Enteric Coated Tablet PO SCH (23:33)
[2021-09-13] MEDS: Meropenem 2 GM in Sodium Chloride 0.9% 100 ML IVPB SCH ×3 (05:16→22:14)
[2021-09-13 07:21] LABS: Hemoglobin 11.3 g/dL (12.0-16.0); Mean Corpuscular HGB CONC 34.2 g/dL (32.0-36.0); Mean Corpuscular Hemoglobin 31.4 pg (27.0-31.0); Platelet Count 24 thou/uL (130-400); RBC Distribution Width 12.2 % (11.5-14.5); Red Blood Cell (RBC) Count 3.59 mill/uL (4.20-5.40); White Blood Cell (WBC) Count 0.7 thou/uL (4.8-10.8)
[2021-09-13 07:35] LABS: Anion Gap 11 mmol/L (10-20); BUN (Urea Nitrogen) 17 mg/dL (9.8-20.1); Calc. Creatinine Clearance 61 mL/min (70-130); Calcium 8.3 mg/dL (7.8-10.44); Carbon Dioxide 24 mmol/L (23-31); Chloride 101 mmol/L (98-107); Glucose 63 mg/dL (83-110); Potassium 3.3 mmol/L (3.5-5.1); Sodium 133 mmol/L (136-145)
[2021-09-13 08:19] LABS: Band 20 % (5-11); Lymphocytes 36 % (21-51); MDiff Complete? YES; Monocytes 20 % (0-10); Myelocyte 2 % (0-0); Neutrophil 18 % (42-75); Nucleated RBC 2 % (0); Platelet Morphology Comment Appears Decreased; Polychromasia SLIGHT = 2-3 cells (100X) (0-2/hpf); Reactive Lymphocytes 4 % (0-10)
[2021-09-13] MEDS: Nystatin 500,000 UNITS/5 ML UDCUP SSW SCH ×4 (08:40→20:16)
[2021-09-13] MEDS: Cholecalciferol 1,000 UNITS (25 MCG) TAB PO SCH (08:40)
[2021-09-13] MEDS: metFORMIN 500 MG TAB PO SCH (08:40)
[2021-09-13] MEDS: Fish Oil 1,000 MG CAP PO SCH (08:40)
[2021-09-13] MEDS: Multivit, Therapeutic 1 TAB PO SCH (08:40)
[2021-09-13] MEDS: Fluconazole In NaCl,Iso-Osm 200 MG in Premix Bag 1 BAG IVPB SCH (08:40)
[2021-09-13] MEDS ORDERED: Non-Formulary Item 1 EACH (Multivitamin [Multi-Vitamin Daily] 1 TABLET Tablet) PO SCH (09:00)
[2021-09-13] MEDS ORDERED: Non-Formulary Item 1 EACH (Cholecalciferol (Vitamin D3) [Vitamin D3] 1,000 UNIT Capsule) PO SCH (09:00)
[2021-09-13] MEDS ORDERED: Non-Formulary Item 1 EACH (Omeprazole [Omeprazole] 20 MG Tablet.Dr) PO SCH (09:00)
[2021-09-13] MEDS ORDERED: Non-Formulary Item 1 EACH (Mirabegron [Myrbetriq] 50 MG Tab.Er.24h) PO SCH (09:00)
[2021-09-13] MEDS: Vancomycin 1 GM in Premix Bag 1 BAG IVPB SCH (11:29)
[2021-09-13] MEDS: Polyethylene Glycol 3350 17 GM Packet PO SCH (11:29)
[2021-09-13] MEDS: Pregabalin 75 MG CAP PO SCH ×2 (11:30→20:16)
[2021-09-13] MEDS: traMADol HCl 50 MG TAB PO PRN ×2 (13:08→23:09)
[2021-09-13] MEDS: Rosuvastatin 5 MG TAB PO SCH (20:16)
[2021-09-13] MEDS: Losartan 25 MG TAB PO SCH (20:16)
[2021-09-13] MEDS: Docusate 100 MG CAP PO SCH (20:17)
[2021-09-13] MEDS: Aspirin 81 mg Enteric Coated Tablet PO SCH (20:35)
[2021-09-14] MEDS: Meropenem 2 GM in Sodium Chloride 0.9% 100 ML IVPB SCH (06:10)
[2021-09-14 06:31] LABS: Hemoglobin 11.6 g/dL (12.0-16.0); Mean Corpuscular HGB CONC 35.6 g/dL (32.0-36.0); Mean Corpuscular Hemoglobin 32.2 pg (27.0-31.0); Mean Corpuscular Volume 90.5 fL (78.0-98.0); Mean Platelet Volume 9.9 fL (7.4-10.4); Platelet Count 43 thou/uL (130-400); RBC Distribution Width 12.1 % (11.5-14.5); Red Blood Cell (RBC) Count 3.61 mill/uL (4.20-5.40); White Blood Cell (WBC) Count 2.4 thou/uL (4.8-10.8)
[2021-09-14 06:48] LABS: Anion Gap 11 mmol/L (10-20); BUN (Urea Nitrogen) 13 mg/dL (9.8-20.1); Calc. Creatinine Clearance 59 mL/min (70-130); Calcium 8.9 mg/dL (7.8-10.44); Carbon Dioxide 27 mmol/L (23-31); Chloride 99 mmol/L (98-107); Glucose 83 mg/dL (83-110); Potassium 3.2 mmol/L (3.5-5.1); Sodium 134 mmol/L (136-145)
[2021-09-14 07:35] LABS: Band 37 % (5-11); Eosinophils 1 % (0-10); Lymphocytes 15 % (21-51); MDiff Complete? YES; Metamyelocyte 1 % (0-0); Monocytes 6 % (0-10); Myelocyte 1 % (0-0); Neutrophil 30 % (42-75); Platelet Morphology Comment Appears Decreased; Polychromasia SLIGHT = 2-3 cells (100X) (0-2/hpf); Reactive Lymphocytes 9 % (0-10)
[2021-09-14 07:36] VITALS: BP 139/66; TEMP 98.3
[2021-09-14] MEDS: Fish Oil 1,000 MG CAP PO SCH (08:45)
[2021-09-14] MEDS: Docusate 100 MG CAP PO SCH (08:45)
[2021-09-14] MEDS: Cholecalciferol 1,000 UNITS (25 MCG) TAB PO SCH (08:45)
[2021-09-14] MEDS: Nystatin 500,000 UNITS/5 ML UDCUP SSW SCH (08:45)
[2021-09-14] MEDS: Multivit, Therapeutic 1 TAB PO SCH (08:45)
[2021-09-14] MEDS: metFORMIN 500 MG TAB PO SCH (08:45)
[2021-09-14] MEDS: Polyethylene Glycol 3350 17 GM Packet PO SCH (08:46)
[2021-09-14] MEDS ORDERED: FLU VACC QS2021-22(65YR UP)/PF 240 MCG/0.7 ML SYRINGE IM ONE (09:00)
[2021-09-14] MEDS: Fluconazole In NaCl,Iso-Osm 200 MG in Premix Bag 1 BAG IVPB SCH (09:25)
[2021-09-14 09:57] LABS: Vancomycin, Trough 8.7 ug/mL
[2021-09-14] MEDS ORDERED: Vancomycin HCl 750 MG in Sodium Chloride 0.9% 250 ML 250 ML IVPB SCH (11:00)
[2021-09-14] MEDS: Pregabalin 75 MG CAP PO SCH (11:03)
[2021-09-14] MEDS: traMADol HCl 50 MG TAB PO PRN (11:03)
== END 2021-09-14 11:32 | disposition home or self-care (01) | DRG 813 ==
LOC: ERS 13:59 → T4-B 22:08
PROVIDERS: ADMIT Internal Medicine; ATTEND Internal Medicine
DX: D69.6 Thrombocytopenia, unspecified (principal); B37.0 Candidal stomatitis; N39.0 Urinary tract infection, site not specified; C82.91 Follicular lymphoma, unspecified, lymph nodes of head, face, and neck; D70.9 Neutropenia, unspecified; E86.0 Dehydration; E11.9 Type 2 diabetes mellitus without complications; E78.5 Hyperlipidemia, unspecified; E78.00 Pure hypercholesterolemia, unspecified; I10 Essential (primary) hypertension; F17.210 Nicotine dependence, cigarettes, uncomplicated; I25.10 Atherosclerotic heart disease of native coronary artery without angina pectoris; B96.20 Unspecified Escherichia coli [E. coli] as the cause of diseases classified elsewhere; R50.81 Fever presenting with conditions classified elsewhere; Z90.710 Acquired absence of both cervix and uterus; Z88.1 Allergy status to other antibiotic agents; Z88.2 Allergy status to sulfonamides; Z88.8 Allergy status to other drugs, medicaments and biological substances; Z79.899 Other long term (current) drug therapy; Z79.82 Long term (current) use of aspirin; Z79.84 Long term (current) use of oral hypoglycemic drugs; Z92.21 Personal history of antineoplastic chemotherapy; Z95.5 Presence of coronary angioplasty implant and graft
CPT/HCPCS: 36415; 36416; 70450; 71045; 80048; 80053; 80202; 81003; 82550; 83605; 84484; 85025; 87040; 87077; 87086; 87186; 87804; 93005; 96374; J0692; J1450; J2185; J2405; J3370; J3490; J7050; U0003; U0005

== ENCOUNTER 2021-09-26 08:41 | Day surgery (SDC) | payer MEDICARE ==
[~2021-09-26 08:41] MED LIST changes: -ADMIXTURE FEE CHEMO IVP SCH; -CYCLOPHOSPHAMIDE IVPB SCH; -DOXORUBICIN IVPB SCH; -Dexamethasone 20 MG in Sodium Chloride 0.9% 50 ML IVPB SCH; -Dexamethasone Sod Phosphate 20 MG in Sodium Chloride 0.9% 50 ML IVPB SCH; -PEGFILGRASTIM-JMDB 6 MG/0.6 ML SYRINGE SQ SCH; -Palonosetron HCl 0.25 MG in Sodium Chloride 0.9% 50 ML IVPB SCH; -RITUXIMAB PVVR IVPB SCH; -SODIUM CHLORIDE 0.9% IVPB SCH; -VINCRISTINE SULFATE IVP SCH; +diphenhydrAMINE 50 MG in Sodium Chloride 0.9% 50 ML IVPB PRN; -diphenhydrAMINE 50 MG in Sodium Chloride 0.9% 50 ML IVPB SCH; -predniSONE 50 MG TAB PO SCH; -vinCRIStine Sulfate 2 MG in Sodium Chloride 0.9% 50 ML IVP SCH
[2021-09-26] MEDS ORDERED: SODIUM CHLORIDE 0.9% IVPB SCH ×3 (08:45)
[2021-09-26] MEDS ORDERED: RITUXIMAB PVVR IVPB SCH (08:45)
[2021-09-26] MEDS ORDERED: vinCRIStine Sulfate 2 MG in Sodium Chloride 0.9% 50 ML IVPB SCH (08:45)
[2021-09-26] MEDS ORDERED: PEGFILGRASTIM-JMDB 6 MG/0.6 ML SYRINGE SQ SCH (08:45)
[2021-09-26] MEDS ORDERED: DOXORUBICIN IVPB SCH (08:45)
[2021-09-26] MEDS ORDERED: predniSONE 50 MG TAB PO SCH (08:45)
[2021-09-26] MEDS ORDERED: CYCLOPHOSPHAMIDE IVPB SCH (08:45)
[2021-09-26] MEDS ORDERED: Dexamethasone Sod Phosphate 20 MG in Sodium Chloride 0.9% 50 ML IVPB SCH (08:45)
[2021-09-26 09:52] VITALS: TEMP 97.6
[2021-09-26] MEDS ORDERED: Sodium Chloride 0.9% 100 ML BAG ONE (10:15)
[2021-09-26] MEDS ORDERED: Acetaminophen 500 MG TAB ONE (10:15)
[2021-09-26] MEDS ORDERED: PALONOSETRON HCL 0.05 MG/ML 5 ML VIAL ONE (10:15)
[2021-09-26 14:24] VITALS: BP 146/68
[2021-09-26] MEDS ORDERED: Pegfilgrastim Onpro 6 MG/0.6 ML SQ SCH (17:00)
== END 2021-09-26 17:01 | disposition home or self-care (01) ==
LOC: ONC/OP 08:41
PROVIDERS: ATTEND Internal Medicine Hematology & Oncology
DX: Z51.11 Encounter for antineoplastic chemotherapy (principal); C83.31 Diffuse large B-cell lymphoma, lymph nodes of head, face, and neck; D75.1 Secondary polycythemia; Z88.1 Allergy status to other antibiotic agents; Z88.2 Allergy status to sulfonamides; Z88.8 Allergy status to other drugs, medicaments and biological substances
CPT/HCPCS: 96367; 96375; 96377; 96411; 96413; 96415; 96417; J1100; J1200; J1453; J1642; J2469; J2505; J3490; J7030; J7050; J9000; J9070; J9370; Q5119

== ENCOUNTER 2021-10-01 20:45 | Inpatient (IN) | payer MEDICARE ==
[2021-10-01] MEDS ORDERED: Vancomycin 1 GM/200 ML BAG ONE (21:26)
[2021-10-01] MEDS ORDERED: Cefepime 2 GM VIAL ONE (21:26)
[2021-10-01] MEDS ORDERED: Ondansetron PF 4 MG/2 ML Vial ONE (21:26)
[2021-10-01 21:53] LABS: INR-International Normal Ratio 1.1; PTT 23.2 sec (22.9-36.1); Prothrombin Time 13.8 sec (12.0-14.7)
[2021-10-01 21:56] LABS: ALT (SGPT) 15 U/L (8-55); AST (SGOT) 14 U/L (5-34); Albumin 3.1 g/dL (3.4-4.8); Alkaline Phosphatase 65 U/L (40-110); Anion Gap 12 mmol/L (10-20); BUN (Urea Nitrogen) 26 mg/dL (9.8-20.1); Bilirubin, Total 0.7 mg/dL (0.2-1.2); Calc. Creatinine Clearance 0 mL/min (70-130); Calcium 8.2 mg/dL (7.8-10.44); Carbon Dioxide 24 mmol/L (23-31); Chloride 101 mmol/L (98-107); Globulin 1.9 g/dL (2.4-3.5); Glucose 107 mg/dL (83-110); Potassium 3.4 mmol/L (3.5-5.1); Sodium 134 mmol/L (136-145)
[2021-10-01 22:24] LABS: Band 2 % (5-11); Lymphocytes 6 % (21-51); MDiff Complete? YES; Mean Corpuscular HGB CONC 35.9 g/dL (32.0-36.0); Mean Corpuscular Hemoglobin 32.8 pg (27.0-31.0); Mean Corpuscular Volume 91.5 fL (78.0-98.0); Mean Platelet Volume 9.4 fL (7.4-10.4); Neutrophil 92 % (42-75); Platelet Count 50 thou/uL (130-400); Platelet Morphology Comment Appears Decreased; RBC Distribution Width 13.4 % (11.5-14.5); Red Blood Cell (RBC) Count 3.05 mill/uL (4.20-5.40); White Blood Cell (WBC) Count 3.1 thou/uL (4.8-10.8)
[2021-10-01 22:54] LABS: SARS-CoV-2 NAA Rapid Test Not Detected (NotDetected)
[2021-10-02] MEDS ORDERED: Acetaminophen 325 MG TAB PO PRN (00:45)
[2021-10-02] MEDS ORDERED: Ondansetron ODT 4 MG TAB SL PRN (00:45)
[2021-10-02] MEDS ORDERED: Ondansetron PF 4 MG/2 ML Vial IVP PRN (00:45)
[2021-10-02 00:46] VITALS: BMI 20.5
[2021-10-02] MEDS ORDERED: hydrALAZINE 20 MG/ML VIAL SLOW IVP PRN (00:57)
[2021-10-02] MEDS: Sodium Chloride 0.9% 1,000 ML IV SCH ×2 (01:20→10:19)
[2021-10-02] MEDS ORDERED: Acetaminophen 650 MG Suppository PR PRN (01:43)
[2021-10-02] MEDS ORDERED: Dextrose 5% in Water 1,000 ML IV PRN (01:59)
[2021-10-02] MEDS ORDERED: Dextrose 50% Abboject 50 ML SYRINGE SLOW IVP PRN (01:59)
[2021-10-02] MEDS ORDERED: HumaLOG 300 UNITS/3 ML VIAL SC PRN ×2 (01:59)
[2021-10-02] MEDS ORDERED: Vancomycin HCl 500 MG in Sodium Chloride 0.9% 100 ML IVPB SCH (02:00)
[2021-10-02] MEDS ORDERED: Potassium Chloride 20 MEQ TAB PO SCH (03:00)
[2021-10-02 03:16] LABS: Bilirubin Negative (Negative); Blood, Urine Trace (Negative); Clarity Clear (Clear); Glucose, Urine (Dipstick) Normal (Negative); Ketone, Urine Negative (Negative); Leukocyte 25 Leu/uL (Negative); Nitrite 1+ (Negative); Protein, Urine (Dipstick) 10 mg/dL (Neg-Trace); RBC/HPF 0-3 HPF (0-3); Squamous Epithelial 0-3 HPF (0-3); Urobilinogen Normal mg/dL (Less than 2)
[2021-10-02 03:18] LABS: Bacteria/HPF 1+ HPF (None Seen)
[2021-10-02 03:19] LABS: Legionella Urinary Ag Negative (Negative); Strep pneumo Urine Ag NEGATIVE (NEGATIVE)
[2021-10-02] MEDS: traMADol HCl 50 MG TAB PO PRN (04:20)
[2021-10-02 07:34] LABS: Anion Gap 11 mmol/L (10-20); BUN (Urea Nitrogen) 25 mg/dL (9.8-20.1); Calc. Creatinine Clearance 46 mL/min (70-130); Calcium 7.3 mg/dL (7.8-10.44); Carbon Dioxide 21 mmol/L (23-31); Chloride 107 mmol/L (98-107); Glucose 165 mg/dL (83-110); Magnesium 1.4 mg/dL (1.6-2.6); Potassium 4.1 mmol/L (3.5-5.1); Sodium 135 mmol/L (136-145)
[2021-10-02 08:10] LABS: Hemoglobin 8.8 g/dL (12.0-16.0); Mean Corpuscular HGB CONC 34.2 g/dL (32.0-36.0); Mean Corpuscular Hemoglobin 31.4 pg (27.0-31.0); Mean Corpuscular Volume 91.9 fL (78.0-98.0); Mean Platelet Volume 9.8 fL (7.4-10.4); Platelet Count 35 thou/uL (130-400); RBC Distribution Width 13.4 % (11.5-14.5); White Blood Cell (WBC) Count 1.2 thou/uL (4.8-10.8)
[2021-10-02] MEDS ORDERED: Magnesium 2 GM/50 ML 2 GM in Premix Bag 1 BAG IVPB SCH (08:20)
[2021-10-02] MEDS ORDERED: Vancomycin 1 GM in Premix Bag 1 BAG IVPB SCH (09:00)
[2021-10-02] MEDS: Multivit, Therapeutic 1 TAB PO SCH (09:16)
[2021-10-02] MEDS: Hydrochlorothiazide 25 MG TAB PO SCH (09:16)
[2021-10-02] MEDS: Cholecalciferol 1,000 UNITS (25 MCG) TAB PO SCH (09:16)
[2021-10-02] MEDS: Famotidine 20 MG TAB PO SCH (09:16)
[2021-10-02] MEDS: Fish Oil 1,000 MG CAP PO SCH (09:16)
[2021-10-02] MEDS: Cefepime 1 GM in Sodium Chloride 0.9% 100 ML IVPB SCH ×2 (10:19→21:46)
[2021-10-02 11:15] LABS: Band 4 % (5-11); Lymphocytes 12 % (21-51); MDiff Complete? YES; Monocytes 4 % (0-10); Neutrophil 80 % (42-75); Platelet Morphology Comment Appears Decreased; Polychromasia SLIGHT = 2-3 cells (100X) (0-2/hpf)
[2021-10-02] MEDS: Pregabalin 75 MG CAP PO SCH ×2 (11:52→21:47)
[2021-10-02] MEDS ORDERED: Vancomycin HCl 750 MG in Sodium Chloride 0.9% 250 ML 250 ML IVPB SCH (20:00)
[2021-10-02] MEDS: Losartan 25 MG TAB PO SCH (21:47)
[2021-10-02] MEDS: Rosuvastatin 5 MG TAB PO SCH (21:48)
[2021-10-03 06:18] LABS: Hemoglobin 8.9 g/dL (12.0-16.0); Mean Corpuscular HGB CONC 34.5 g/dL (32.0-36.0); Mean Corpuscular Hemoglobin 32.1 pg (27.0-31.0); Mean Corpuscular Volume 92.9 fL (78.0-98.0); Mean Platelet Volume 9.6 fL (7.4-10.4); Platelet Count 19 thou/uL (130-400); Platelet Morphology Comment Appears Decreased; RBC Distribution Width 13.4 % (11.5-14.5); RBC Morphology Normal; Red Blood Cell (RBC) Count 2.76 mill/uL (4.20-5.40); White Blood Cell (WBC) Count 0.2 thou/uL (4.8-10.8)
[2021-10-03] MEDS: Fish Oil 1,000 MG CAP PO SCH (08:35)
[2021-10-03] MEDS: Multivit, Therapeutic 1 TAB PO SCH (08:35)
[2021-10-03] MEDS: Cefepime 1 GM in Sodium Chloride 0.9% 100 ML IVPB SCH (08:35)
[2021-10-03] MEDS: Hydrochlorothiazide 25 MG TAB PO SCH (08:35)
[2021-10-03] MEDS: Famotidine 20 MG TAB PO SCH (08:35)
[2021-10-03] MEDS: Cholecalciferol 1,000 UNITS (25 MCG) TAB PO SCH (08:35)
[2021-10-03] MEDS: traMADol HCl 50 MG TAB PO PRN (08:47)
[2021-10-03] MEDS: Pregabalin 75 MG CAP PO SCH ×2 (12:21→20:19)
[2021-10-03 19:41] LABS: Vancomycin, Trough 7.7 ug/mL
[2021-10-03] MEDS: Losartan 25 MG TAB PO SCH (20:19)
[2021-10-03] MEDS: Rosuvastatin 5 MG TAB PO SCH (20:19)
[2021-10-03] MEDS: Cefepime 2 GM in Sodium Chloride 0.9% 100 ML IVPB SCH (20:41)
[2021-10-03] MEDS: VANCOMYCIN 1.25 GM/250 ML BAG 1.25 GM in Premix Bag 1 BAG IVPB SCH (21:30)
[2021-10-04 05:39] LABS: Anion Gap 8 mmol/L (10-20); BUN (Urea Nitrogen) 13 mg/dL (9.8-20.1); Calc. Creatinine Clearance 61 mL/min (70-130); Calcium 8.2 mg/dL (7.8-10.44); Carbon Dioxide 26 mmol/L (23-31); Chloride 99 mmol/L (98-107); Glucose 127 mg/dL (83-110); Potassium 3.3 mmol/L (3.5-5.1); Sodium 130 mmol/L (136-145)
[2021-10-04 05:53] LABS: Hemoglobin 9.3 g/dL (12.0-16.0); Mean Corpuscular HGB CONC 34.9 g/dL (32.0-36.0); Mean Corpuscular Hemoglobin 31.9 pg (27.0-31.0); Mean Corpuscular Volume 91.4 fL (78.0-98.0); Mean Platelet Volume 10.9 fL (7.4-10.4); Platelet Count 11 thou/uL (130-400); RBC Distribution Width 13.1 % (11.5-14.5); Red Blood Cell (RBC) Count 2.91 mill/uL (4.20-5.40); White Blood Cell (WBC) Count 0.2 thou/uL (4.8-10.8)
[2021-10-04 07:33] LABS: MDiff Complete? YES; Platelet Morphology Comment Appears Decreased; Polychromasia SLIGHT = 2-3 cells (100X) (0-2/hpf)
[2021-10-04] MEDS ORDERED: Sodium Chloride 0.9% 500 ML IV SCH (08:00)
[2021-10-04] MEDS ORDERED: Potassium Chloride 20 MEQ in Premix Bag 1 BAG IVPB SCH (09:00)
[2021-10-04] MEDS: Famotidine 20 MG TAB PO SCH (09:45)
[2021-10-04] MEDS: Cholecalciferol 1,000 UNITS (25 MCG) TAB PO SCH (09:45)
[2021-10-04] MEDS: Fish Oil 1,000 MG CAP PO SCH (09:46)
[2021-10-04] MEDS: metFORMIN 500 MG TAB PO SCH (09:46)
[2021-10-04] MEDS: Cefepime 2 GM in Sodium Chloride 0.9% 100 ML IVPB SCH ×2 (09:46→20:31)
[2021-10-04] MEDS: Multivit, Therapeutic 1 TAB PO SCH (09:46)
[2021-10-04] MEDS ORDERED: Potassium Chloride 20 MEQ TAB PO SCH (12:00)
[2021-10-04] MEDS: Pregabalin 75 MG CAP PO SCH ×2 (12:56→20:32)
[2021-10-04] MEDS ORDERED: Aluminum & Magnesium Hydroxide 60 ML, diphenhydrAMINE 150 MG, Lidocaine 2% Viscous Solu... SSW PRN (19:32)
[2021-10-04] MEDS: VANCOMYCIN 1.25 GM/250 ML BAG 1.25 GM in Premix Bag 1 BAG IVPB SCH (20:31)
[2021-10-04] MEDS: Rosuvastatin 5 MG TAB PO SCH (20:32)
[2021-10-04] MEDS: Losartan 25 MG TAB PO SCH (20:32)
[2021-10-05 05:09] LABS: Hemoglobin 7.8 g/dL (12.0-16.0); Mean Corpuscular HGB CONC 35.5 g/dL (32.0-36.0); Mean Corpuscular Hemoglobin 32.2 pg (27.0-31.0); Mean Corpuscular Volume 90.6 fL (78.0-98.0); Mean Platelet Volume 8.2 fL (7.4-10.4); Platelet Count 36 thou/uL (130-400); RBC Distribution Width 12.9 % (11.5-14.5); Red Blood Cell (RBC) Count 2.42 mill/uL (4.20-5.40); White Blood Cell (WBC) Count 0.3 thou/uL (4.8-10.8)
[2021-10-05 05:23] LABS: Anion Gap 11 mmol/L (10-20); BUN (Urea Nitrogen) 16 mg/dL (9.8-20.1); Calc. Creatinine Clearance 60 mL/min (70-130); Calcium 8.3 mg/dL (7.8-10.44); Carbon Dioxide 24 mmol/L (23-31); Chloride 104 mmol/L (98-107); Glucose 106 mg/dL (83-110); Sodium 135 mmol/L (136-145)
[2021-10-05 05:36] LABS: Platelet Morphology Comment Appears Decreased; RBC Morphology Normal
[2021-10-05] MEDS: Fish Oil 1,000 MG CAP PO SCH (08:18)
[2021-10-05] MEDS: Cholecalciferol 1,000 UNITS (25 MCG) TAB PO SCH (08:18)
[2021-10-05] MEDS: Multivit, Therapeutic 1 TAB PO SCH (08:18)
[2021-10-05] MEDS: metFORMIN 500 MG TAB PO SCH (08:19)
[2021-10-05] MEDS: Cefepime 2 GM in Sodium Chloride 0.9% 100 ML IVPB SCH ×2 (08:19→17:32)
[2021-10-05] MEDS: Famotidine 20 MG TAB PO SCH (08:31)
[2021-10-05] MEDS: Pregabalin 75 MG CAP PO SCH ×2 (12:36→21:43)
[2021-10-05 20:13] LABS: Vancomycin, Trough 12.4 ug/mL
[2021-10-05] MEDS: Losartan 25 MG TAB PO SCH (21:44)
[2021-10-05] MEDS: Rosuvastatin 5 MG TAB PO SCH (21:44)
[2021-10-05] MEDS ORDERED: Vancomycin HCl 750 MG in Sodium Chloride 0.9% 250 ML 250 ML IVPB SCH (22:00)
[2021-10-05] MEDS ORDERED: Acetaminophen 325 MG TAB PO PRN (23:46)
[2021-10-06] MEDS: Cefepime 2 GM in Sodium Chloride 0.9% 100 ML IVPB SCH ×2 (00:07→08:45)
[2021-10-06] MEDS ORDERED: Melatonin 3 MG TAB PO SCH (00:23)
[2021-10-06 04:39] LABS: Platelet Count 22 thou/uL (130-400)
[2021-10-06 04:59] LABS: Anion Gap 12 mmol/L (10-20); BUN (Urea Nitrogen) 14 mg/dL (9.8-20.1); Calc. Creatinine Clearance 63 mL/min (70-130); Calcium 8.5 mg/dL (7.8-10.44); Carbon Dioxide 21 mmol/L (23-31); Chloride 101 mmol/L (98-107); Glucose 76 mg/dL (83-110); Potassium 3.5 mmol/L (3.5-5.1); Sodium 130 mmol/L (136-145)
[2021-10-06 05:12] LABS: Band 6 % (5-11); Eosinophils 6 % (0-10); Hemoglobin 7.5 g/dL (12.0-16.0); Lymphocytes 32 % (21-51); MDiff Complete? YES; Mean Corpuscular HGB CONC 35.3 g/dL (32.0-36.0); Mean Corpuscular Hemoglobin 31.5 pg (27.0-31.0); Mean Corpuscular Volume 89.4 fL (78.0-98.0); Mean Platelet Volume 9.1 fL (7.4-10.4); Monocytes 4 % (0-10); Neutrophil 52 % (42-75); Platelet Morphology Comment Appears Decreased; RBC Distribution Width 12.8 % (11.5-14.5); RBC Morphology Normal; Red Blood Cell (RBC) Count 2.38 mill/uL (4.20-5.40); White Blood Cell (WBC) Count 1.2 thou/uL (4.8-10.8)
[2021-10-06] MEDS: Famotidine 20 MG TAB PO SCH (08:45)
[2021-10-06] MEDS: Fish Oil 1,000 MG CAP PO SCH (08:45)
[2021-10-06] MEDS: Cholecalciferol 1,000 UNITS (25 MCG) TAB PO SCH (08:45)
[2021-10-06] MEDS: Multivit, Therapeutic 1 TAB PO SCH (08:46)
[2021-10-06] MEDS: metFORMIN 500 MG TAB PO SCH (08:46)
[2021-10-06 08:49] VITALS: BP 122/65; TEMP 97.3
== END 2021-10-06 11:50 | disposition home or self-care (01) | DRG 871 ==
LOC: ERS 20:45 → MSONC 23:25
PROVIDERS: ADMIT Student in an Organized Health Care Education/Training Program; ATTEND Internal Medicine
DX: A41.9 Sepsis, unspecified organism (principal); J18.9 Pneumonia, unspecified organism; Z66 Do not resuscitate; Z20.822 Contact with and (suspected) exposure to COVID-19; D61.810 Antineoplastic chemotherapy induced pancytopenia; E87.1 Hypo-osmolality and hyponatremia; E44.1 Mild protein-calorie malnutrition; N39.0 Urinary tract infection, site not specified; C82.90 Follicular lymphoma, unspecified, unspecified site; I25.10 Atherosclerotic heart disease of native coronary artery without angina pectoris; E87.6 Hypokalemia; B96.89 Other specified bacterial agents as the cause of diseases classified elsewhere; E11.9 Type 2 diabetes mellitus without complications; E78.5 Hyperlipidemia, unspecified; E78.00 Pure hypercholesterolemia, unspecified; I10 Essential (primary) hypertension; F17.210 Nicotine dependence, cigarettes, uncomplicated; E83.42 Hypomagnesemia; T45.1X5A Adverse effect of antineoplastic and immunosuppressive drugs, initial encounter; Z79.84 Long term (current) use of oral hypoglycemic drugs; Z79.899 Other long term (current) drug therapy; Z85.810 Personal history of malignant neoplasm of tongue; Z92.21 Personal history of antineoplastic chemotherapy; Z92.3 Personal history of irradiation; Z68.20 Body mass index [BMI] 20.0-20.9, adult; Z90.710 Acquired absence of both cervix and uterus; Z95.5 Presence of coronary angioplasty implant and graft; Z88.1 Allergy status to other antibiotic agents; Z88.2 Allergy status to sulfonamides; Z88.8 Allergy status to other drugs, medicaments and biological substances
CPT/HCPCS: 0240U; 36415; 36416; 36430; 51701; 71045; 80048; 80053; 80202; 81003; 81015; 83605; 83735; 85025; 85610; 85730; 86850; 86900; 86901; 87040; 87086; 87449; 87899; 93005; 94760; 96365; 96368; J0360; J0692; J1642; J2405; J3370; J3475; J3480; J3490; J7030; J7050; P9035; Q0163

== ENCOUNTER 2021-10-17 09:27 | Day surgery (SDC) | payer MEDICARE ==
[~2021-10-17 09:27] MED LIST changes: +Cyclophosphamide 0.6 GM in Sodium Chloride 0.9% 250 ML 250 ML IVPB SCH; +DOXORUBICIN IVPB SCH; +Dexamethasone Sod Phosphate 20 MG in Sodium Chloride 0.9% 50 ML IVPB SCH; +RITUXIMAB PVVR IVPB SCH; +SODIUM CHLORIDE 0.9% IVPB SCH; +VINCRISTINE SULFATE IVPB SCH
[2021-10-17 09:52] VITALS: BP 132/64; TEMP 98.3
[2021-10-17] MEDS ORDERED: PALONOSETRON HCL 0.05 MG/ML 5 ML VIAL ONE (10:27)
[2021-10-17] MEDS ORDERED: Pegfilgrastim Onpro 6 MG/0.6 ML SQ SCH (12:30)
[2021-10-18] MEDS ORDERED: predniSONE 50 MG TAB PO SCH (08:00)
== END 2021-10-17 16:05 | disposition home or self-care (01) ==
LOC: ONC/OP 09:27
PROVIDERS: ATTEND Internal Medicine Hematology & Oncology
DX: Z51.11 Encounter for antineoplastic chemotherapy (principal); C83.31 Diffuse large B-cell lymphoma, lymph nodes of head, face, and neck; D75.1 Secondary polycythemia; Z88.1 Allergy status to other antibiotic agents; Z88.2 Allergy status to sulfonamides; Z88.8 Allergy status to other drugs, medicaments and biological substances; R30.0 Dysuria
CPT/HCPCS: 81001; 87086; 96367; 96372; 96375; 96377; 96411; 96413; 96415; 96417; J1100; J1200; J1453; J1642; J2469; J2505; J3490; J7030; J7050; J9000; J9070; J9370; Q5119